=== PATIENT | female | born 1980 | race Caucasian/White ===

== ENCOUNTER 2024-10-25 04:22 | Emergency (ER) | payer OTHER | END 2024-10-25 04:36 | disposition home or self-care (01) | LOC: ED 04:22 | DX: Z00.00 Encounter for general adult medical examination without abnormal findings (principal); R11.2 Nausea with vomiting, unspecified; R50.9 Fever, unspecified ==

== ENCOUNTER 2024-12-23 00:52 | Observation (INO) | payer OTHER ==
[~2024-12-23] VITALS: Ht 162.5 cm; Wt 92.5 kg
[2024-12-23] VITALS (10 sets, daily range): BP systolic 96–145; BP diastolic 46–86
[2024-12-23] MEDS ORDERED: Ondansetron Hydrochloride 4 MG TAB SL ONE (01:10)
[2024-12-23] MEDS ORDERED: Ondansetron Hydrochloride 4 MG/2 ML VIAL IV ONE ×3 (01:15→12:52)
[2024-12-23 01:28] LABS: BASO # 0.1 10*3/uL (0.0-0.1); BASO % 0.5 % (0.0-1.0); EOS # 0.1 10*3/uL (0.0-0.4); EOS % 0.7 % (1.0-4.0); MEAN CELL VOLUME 89.4 fl (81.0-99.0); MEAN CORPUSCULAR HGB 30.8 pg (27.0-31.0); MEAN PLATELET VOLUME 9.1 fl (9.6-12.3); MONO # 0.9 10*3/uL (0.1-1.0); MONO % 6.1 % (3.0-9.0); NEUT # 11.3 10*3/uL (2.3-7.9); NEUT % 74.7 % (47.0-73.0); NUCLEATED RED BLOOD CELL 0.0 % (0.0-0.0); NUCLEATED RED BLOOD CELL 0.0 10*3/uL (0.0-0.0); PLATELET COUNT AUTOMATED 337 10*3/uL (130-400); RED CELL DISTRI WIDTH 11.7 % (0-14.5)
[2024-12-23 01:50] LABS: BUN 13 mg/dl (9-23); SGPT/ALT 12 U/L (5-49)
[2024-12-23] MEDS ORDERED: CIPROFLOXACIN 200 ML IV ONE (02:30)
[2024-12-23] MEDS ORDERED: SODIUM CHLORIDE 0.9% 1,000 ML IV ONE ×3 (02:30→10:32)
[2024-12-23] MEDS ORDERED: Acetaminophen/Hydrocodone 5 MG/325 MG TABLET PO PRN (03:20)
[2024-12-23] MEDS ORDERED: ACETAMINOPHEN 325 MG TAB PO PRN (03:20)
[2024-12-23] MEDS ORDERED: ACETAMINOPHEN 650 MG SUPP R PRN (03:20)
[2024-12-23] MEDS ORDERED: BISACODYL 5 MG TAB PO PRN (03:20)
[2024-12-23] MEDS ORDERED: Ondansetron Hydrochloride 4 MG/2 ML VIAL IV PRN (03:20)
[2024-12-23] MEDS ORDERED: BISACODYL 10 MG SUPP R PRN (03:20)
[2024-12-23] MEDS ORDERED: SERTRALINE HYD100 MG PO (03:27)
[2024-12-23] MEDS ORDERED: ACETAMINOPHEN 100 ML IV ONE (09:32)
[2024-12-23] MEDS ORDERED: CIPROFLOXACIN 200 ML IV SCH (10:00)
[2024-12-23] MEDS ORDERED: fentaNYL CITRATE/PF 50 MCG/ML SYRINGE IV PRN (10:20)
[2024-12-23] MEDS ORDERED: HYDROmorphONE Hydrochloride 0.5 MG/0.5 ML SYRINGE IV PRN (10:40)
[2024-12-23] MEDS ORDERED: Acetaminophen/Oxycodone 5 MG/325 MG TABLET PO PRN (10:40)
[2024-12-23] MEDS ORDERED: fentaNYL CITRATE/PF 50 MCG/ML SYRINGE ONE ×2 (10:41→10:59)
[2024-12-23] MEDS ORDERED: Ondansetron Hydrochloride 4 MG/2 ML VIAL ONE (10:41)
[2024-12-23] MEDS ORDERED: WEGOVY1 MG/0.5 M SQ (12:50)
[2024-12-23] MEDS ORDERED: SEVOFLURANE 250 ML BOT INH ONE (12:52)
[2024-12-23] MEDS ORDERED: GLYCOPYRROLATE 0.4 MG/2 ML VIAL IV ONE (12:52)
[2024-12-23] MEDS ORDERED: ROCURONIUM BROMIDE 50 MG/5 ML SYRINGE IV ONE (12:52)
[2024-12-23] MEDS ORDERED: Midazolam Hydrochloride 2 MG/2 ML VIAL IV ONE (12:52)
[2024-12-23] MEDS ORDERED: Ketamine Hydrochloride 50 MG/5 ML SYRINGE IV ONE (12:52)
[2024-12-23] MEDS ORDERED: PROPOFOL 200 MG/20 ML VIAL IV ONE (12:52)
[2024-12-23] MEDS ORDERED: SUGAMMADEX SODIUM 200 MG/2 ML VIAL IV ONE (12:52)
[2024-12-23] MEDS ORDERED: Dexamethasone Sodium Phospha 4 MG/ML VIAL IV ONE (12:52)
[2024-12-23] MEDS ORDERED: DOCUSATE SOD100 MG PO (13:32)
[2024-12-23] MEDS ORDERED: OXYCODONE-ACET1 EAC3 PO (13:32)
[2024-12-23] MEDS ORDERED: DOCUSATE SODIUM 100 MG CAP PO SCH (18:00)
== END 2024-12-23 13:48 | disposition home or self-care (01) ==
LOC: ED 00:52 → EDHOLD 03:08 → 5E 03:08 → EDHOLD 03:08 → 5E 07:44
PROVIDERS: Internal Medicine; ADMIT Student in an Organized Health Care Education/Training Program; ATTEND Student in an Organized Health Care Education/Training Program
DX: K35.80 Unspecified acute appendicitis (principal); D72.828 Other elevated white blood cell count; R11.2 Nausea with vomiting, unspecified; F32.A Depression, unspecified; E66.9 Obesity, unspecified; Z68.35 Body mass index [BMI] 35.0-35.9, adult; Z79.899 Other long term (current) drug therapy